=== PATIENT | female | born 2000 | race American Indian/Alaskan Native ===

== ENCOUNTER 2019-01-01 21:31 | Emergency (ER) | payer SELFPAY ==
[2019-01-01] MEDS ORDERED: TORADOL IM ONE (23:08)
[2019-01-01] MEDS ORDERED: NORCO 5/325 PO ONE (23:08)
--- NOTE | 2019-01-01 23:08 | Emergency Department Report ---
ED Female HPI - General Chief complaint: Abdominal Pain Stated complaint: PELVIC PAIN Time Seen by Provider: 01/01/19 23:05 Source: patient Mode of arrival: Ambulatory Limitations: No Limitations - History of Present Illness Initial comments: Nancy is a healthy 18-year-old female who presents today after surgical by outside reproductive clinic. She did not receive any medication or prescription after procedure. She is unclear if aspirin or ibuprofen was safe after the procedure. She has intermittent pelvic cramping. No pain at rest. Worse with movement. Moderately severe pain without any radiation. Heavy vaginal bleeding worse at night. MD Complaint: vaginal bleeding, pelvic pain -: Gradual, days(s) (2) Severity: moderate Quality: cramping, sharp Consistency: intermittent Worsens with: movement Associated Symptoms: vaginal bleeding - Related Data Previous Rx's Medication Instructions Recorded Last Taken Type HYDROcodone/APAP 5-325 [[place] 1 each PO Q6HR PRN #15 tablet 01/02/19 Unknown Rx 5/325] Ibuprofen [Motrin 800 MG tab] 800 mg PO Q8HR PRN #15 tablet 01/02/19 Unknown Rx Allergies Allergy/AdvReac Type Severity Reaction Status Date / Time [place] Allergy Itching Uncoded 01/01/19 22:29 ED Review of Systems ROS: Stated complaint: PELVIC PAIN Other details as noted in HPI Comment: All other systems reviewed and negative Constitutional: denies: fever, malaise Gastrointestinal: abdominal pain ED Past Medical Hx - Past Medical History Previous Medical History?: Yes Hx Sickle Cell Disease: Yes (Sickle Cell Trait) Hx Psychiatric Treatment: Yes (Anxiety) Additional medical history: Anemia - Surgical History Past Surgical History?: Yes Additional Surgical History: - Social History Smoking Status: Never Smoker Substance Use Type: None - Medications Home Medications: Home Medications Medication Instructions Recorded Confirmed Last Taken Type HYDROcodone/APAP 5-325 [[place] 1 each PO Q6HR PRN #15 tablet 01/02/19 Unknown Rx 5/325] Ibuprofen [Motrin 800 MG tab] 800 mg PO Q8HR PRN #15 tablet 01/02/19 Unknown Rx ED Physical Exam - General Limitations: No Limitations General appearance: alert, in no apparent distress - Head Head exam: Present: atraumatic, normocephalic - Eye Eye exam: Present: normal appearance - ENT ENT exam: Present: mucous membranes moist - Neck Neck exam: Present: normal inspection, full ROM - Respiratory Respiratory exam: Present: normal lung sounds bilaterally. Absent: respiratory distress, wheezes, rales, rhonchi - Cardiovascular Cardiovascular Exam: Present: regular rate, normal rhythm, normal heart sounds. Absent: systolic murmur, diastolic murmur, rubs, gallop - GI/Abdominal GI/Abdominal exam: Present: soft, normal bowel sounds. Absent: distended, tenderness, guarding, rebound - Extremities Exam Extremities exam: Present: normal inspection - Back Exam Back exam: Present: normal inspection - Neurological Exam Neurological exam: Present: alert, oriented X3 - Psychiatric Psychiatric exam: Present: normal affect, normal mood - Skin Skin exam: Present: warm, dry, intact, normal color. Absent: rash ED Course Vital Signs 01/01/19 01/02/19 01/02/19 22:24 00:07 00:20 Temperature 98.2 F 98.1 F Pulse Rate 65 81 Respiratory 18 16 Rate Blood Pressure 114/74 Blood Pressure 111/64 [Right] O2 Sat by Pulse 100 98 99 Oximetry ED Medical Decision Making - Lab Data Result diagrams: 01/01/19 22:40 Laboratory Results - last 24 hr 01/01/19 01/01/19 01/01/19 22:40 22:40 22:43 WBC 5.5 RBC 3.92 Hgb 11.8 Hct 34.4 MCV 88 MCH 30 MCHC 34 RDW 15.0 Plt Count 173 Lymph % (Auto) 49.6 H [place] % (Auto) 8.6 H Eos % (Auto) 2.0 Baso % (Auto) 0.4 Lymph # 2.7 [place] # 0.5 Eos # 0.1 Baso # 0.0 Seg Neutrophils % 39.4 L Seg Neutrophils # 2.1 HCG, Quant 4668 H Urine Color Yellow Urine Turbidity Slightly-cloudy Urine pH 5.0 Ur Specific [place] 1.020 Urine Protein <15 mg/dl Urine Glucose (UA) Neg Urine Ketones Neg Urine Blood Lg Urine Nitrite Neg Urine Bilirubin Neg Urine Urobilinogen < 2.0 Ur Leukocyte Esterase Sm Urine WBC (Auto) 7.0 H Urine RBC (Auto) > 182.0 U Epithel Cells (Auto) 4.0 Urine Bacteria (Auto) 1+ Urine Mucus Few Blood Type 01/01/19 22:43 WBC RBC Hgb Hct MCV MCH MCHC RDW Plt Count Lymph % (Auto) [place] % (Auto) Eos % (Auto) Baso % (Auto) Lymph # [place] # Eos # Baso # Seg Neutrophils % Seg Neutrophils # HCG, Quant Urine Color Urine Turbidity Urine pH Ur Specific [place] Urine Protein Urine Glucose (UA) Urine Ketones Urine Blood Urine Nitrite Urine Bilirubin Urine Urobilinogen Ur Leukocyte Esterase Urine WBC (Auto) Urine RBC (Auto) U Epithel Cells (Auto) Urine Bacteria (Auto) Urine Mucus Blood Type B POSITIVE - Medical Decision Making Ms. Beltrán presents with pain and bleeding typical for surgical . She only required education and reassurance. No indication of endometritis. dc'd home with rx: norco, IBuprofen She has f/u scheduled for next week Critical care attestation.: If time is entered above; I have spent that time in minutes in the direct care of this critically ill patient, excluding procedure time. ED Disposition Clinical Impression: Post-operative haemorrhage, Elective , Postoperative pain Disposition: [id number]-01 TO HOME OR SELFCARE Is pt being admited?: No Does the pt Need Aspirin: No Condition: Stable Additional Instructions: Please return to the ER for any concerns. Prescriptions: Ibuprofen [Motrin 800 MG tab] 800 mg PO Q8HR PRN #15 tablet PRN Reason: Pain , Severe (7-10) HYDROcodone/APAP 5-325 [[place] 5/325] 1 each PO Q6HR PRN #15 tablet PRN Reason: Pain Forms: Work/School Release Form(ED)
[2019-01-01 23:09] LABS: Basophils % (Auto) 0.4 % (0.0-1.8); Eosinophils # (Auto) 0.1 K/mm3 (0.0-0.4); Hematocrit 34.4 % (30.3-42.9); Hemoglobin 11.8 gm/dl (10.1-14.3); Lymphocytes # (Auto) 2.7 K/mm3 (1.2-5.4); Lymphocytes % (Auto) 49.6 % (13.4-35.0); Mean Corpuscular HGB Conc 34 % (30-34); Mean Corpuscular Volume 88 fl (79-97); Monocytes # (Auto) 0.5 K/mm3 (0.0-0.8); Monocytes % (Auto) 8.6 % (0.0-7.3); Platelet Count 173 K/mm3 (140-440); Red Blood Count 3.92 M/mm3 (3.65-5.03)
[2019-01-01 23:13] LABS: Bacteria,Urine 1+ /HPF (Negative); Bilirubin,Urine NEG (Negative); Blood,Urine LG (Negative); Color,Urine Yellow (Yellow); Mucus,Urine FEW /HPF; Protein,Urine <15 mg/dL mg/dL (Negative); Urobilinogen,Urine < 2.0 mg/dL (<2.0)
[2019-01-01 23:14] LABS: RBC,Urine > 182.0 /HPF (0.0-6.0)
[2019-01-02 02:28] VITALS: BP 114/73
== END 2019-01-02 02:28 | disposition home or self-care (01) ==
LOC: ED 21:31
DX: Z33.2 Encounter for elective termination of pregnancy (principal); Z86.2 Personal history of diseases of the blood and blood-forming organs and certain disorders involving the immune mechanism
CPT/HCPCS: 36415; 81001; 84702; 85025; 86900; 86901; 96372; 99283; J1885